=== PATIENT | female | born 1985 | race Asian ===

== ENCOUNTER 2018-10-02 16:45 | Inpatient (IN) | payer BC, OTHER ==
[~2018-10-02] VITALS: Ht 162.6 cm; Wt 113.6 kg
[2018-10-02 17:07] VITALS: BP 141/87
[2018-10-02 17:23] LABS: MICROSCOPIC INDICATED
[2018-10-02 17:26] LABS: BASOPHILS # (AUTO) 0.13 x10^3/uL (0-0.1); BASOPHILS % (AUTO) 1 % (0-1); EOSINOPHILS # (AUTO) 0.13 x10^3/uL (0-0.4); EOSINOPHILS % (AUTO) 1 % (1-7); LYMPHOCYTES # (AUTO) 2.69 x10^3/uL (1-3.4); LYMPHOCYTES % (AUTO) 18 % (22-44); MD NO; MEAN CORPUSCULAR HEMOGLOBIN 28.6 pg (27.0-34.8); MEAN CORPUSCULAR HGB CONC 33.2 g/dL (32.4-35.8); MEAN CORPUSCULAR VOLUME 86.2 fL (80-100); MEAN PLATELET VOLUME 9.5 fL (7.4-10.4); MONOCYTES # (AUTO) 0.95 x10^3/uL (0.2-0.8); MONOCYTES % (AUTO) 6 % (2-9); NEUTROPHILS # (AUTO) 10.97 x10^3/uL (1.8-6.8); NEUTROPHILS % (AUTO) 74 % (42-75); PLATELET COUNT 251 x10^3/uL (130-400); RED BLOOD COUNT 4.34 x10^6/uL (3.82-5.3); RED CELL DISTRIBUTION WIDTH 13.5 % (9.6-15.2)
[2018-10-02 17:26] LABS: CREATININE,URINE RANDOM 82.2 mg/dL
[2018-10-02 17:39] LABS: ALBUMIN 2.8 g/dL (3.4-5.0); ANION GAP 8 mmol/L (5-15); CALCIUM 8.5 mg/dL (8.5-10.1); CHLORIDE 110 mmol/L (98-107)
[2018-10-02 17:43] LABS: ALANINE AMINOTRANSFERASE 13 U/L (12-78); ALKALINE PHOSPHATASE 181 U/L (45-117); BILIRUBIN,TOTAL 0.1 mg/dL (0.2-1.0); CREATININE 0.58 mg/dL (0.55-1.02); TOTAL PROTEIN 7.8 g/dL (6.4-8.2)
[2018-10-02 17:45] LABS: BILIRUBIN, DIRECT < 0.1 mg/dL (0.1-0.2)
[2018-10-02] MEDS ORDERED: D5%-LACTATED RINGERS 1,000 ML IV SCH (18:01)
[2018-10-02] MEDS ORDERED: OXYTOCIN 30U/ 0.9% NaCL 500ML 500 ML IV PRN (18:01)
[2018-10-02] MEDS ORDERED: OXYTOCIN 30U/ 0.9% NaCL 500ML 500 ML IV ONE (18:01)
[2018-10-02] MEDS ORDERED: NEWBORN KIT ONE (18:12)
[2018-10-02] MEDS ORDERED: OXYTOCIN 30U/ 0.9% NaCL 500ML 500 ML ONE (18:12)
[2018-10-02] MEDS ORDERED: MISOPROSTOL 200 MCG TABLET ONE (18:12)
[2018-10-02] MEDS ORDERED: LIDOCAINE 1%, 20ML ONE (18:12)
[2018-10-02] MEDS ORDERED: ONDANSETRON 2MG/ML, 2ML ONE (18:13)
[2018-10-02] MEDS: LACTATED RINGERS 1,000 ML IV SCH ×2 (18:28→22:21)
[2018-10-02] MEDS ORDERED: SODIUM CITRATE/CITRIC ACID 30 ML UDC PO PRN (18:30)
[2018-10-02] MEDS ORDERED: FENTANYL PF 100 MCG/2ML IV PRN (18:30)
[2018-10-02] MEDS ORDERED: ONDANSETRON 2MG/ML, 2ML IVPush PRN (18:30)
[2018-10-02] MEDS ORDERED: METOCLOPRAMIDE 5 MG/ML, 2ML IVPush PRN (18:30)
[2018-10-02] MEDS ORDERED: FENTANYL/BUPIV./NS/PF 250 ML EPIDCONT SCH (20:15)
[2018-10-02] MEDS ORDERED: LACTATED RINGERS 1,000 ML IV SCH (20:15)
[2018-10-02] MEDS ORDERED: LACTATED RINGERS 1,000 ML IVBOLUS PRN (20:30)
[2018-10-02] MEDS ORDERED: NALOXONE 0.4 MG/ML, 1ML IVPush PRN (20:30)
[2018-10-02] MEDS ORDERED: EPHEDRINE 50 MG/ML, 1ML IVPush PRN (20:30)
[2018-10-03] MEDS ORDERED: FENTANYL PF 100 MCG/2ML ONE ×2 (01:08→02:01)
[2018-10-03] MEDS: FENTANYL PF 100 MCG/2ML IVPush PRN ×2 (01:14→02:19)
[2018-10-03] MEDS ORDERED: FENTANYL/BUPIV./NS/PF 250 ML EPIDCONT ONE (02:56)
[2018-10-03] MEDS ORDERED: FENTANYL/BUPIV./NS/PF 250 ML EPIDCONT SCH (03:09)
[2018-10-03] MEDS: LACTATED RINGERS 1,000 ML IV SCH ×3 (03:09→19:09)
[2018-10-03] MEDS ORDERED: BUPIVACAINE 0.25% ONE (03:12)
[2018-10-03] MEDS ORDERED: EPHEDRINE 50 MG/ML, 1ML IVPush PRN (03:30)
[2018-10-03] MEDS ORDERED: NALOXONE 0.4 MG/ML, 1ML IVPush PRN (03:30)
[2018-10-03] MEDS ORDERED: LACTATED RINGERS 1,000 ML IVBOLUS PRN (03:30)
[2018-10-03] MEDS ORDERED: ACETAMINOPHEN 325 MG TABLET ONE (05:33)
[2018-10-03] MEDS ORDERED: IBUPROFEN 600 MG TABLET ONE (06:43)
[2018-10-03] MEDS ORDERED: OXYcodone/APAP 5/325MG TABLET ONE (06:43)
[2018-10-03] MEDS: IBUPROFEN 600 MG TABLET PO PRN ×3 (06:55→23:56)
[2018-10-03] MEDS ORDERED: OXYTOCIN 30U/ 0.9% NaCL 500ML 500 ML ONE (06:58)
[2018-10-03] MEDS ORDERED: MEASLES,MUMPS&RUBELLA VACC/PF 0.5 ML SQ PRN (07:00)
[2018-10-03] MEDS ORDERED: DIPH,PERTUSS(ACELL),TET VAC/PF NC IM-VACC PRN (07:00)
[2018-10-03] MEDS ORDERED: RHOGAM FROM BLOOD BANK 1 NOTE EA IM/IV ONE (07:00)
[2018-10-03] MEDS ORDERED: CARBOPROST TROMETHAMINE 250 MCG/ML, 1ML IM PRN (07:00)
[2018-10-03] MEDS ORDERED: MISOPROSTOL 200 MCG TABLET PR PRN (07:00)
[2018-10-03] MEDS ORDERED: ACETAMINOPHEN 325 MG TABLET PO PRN (07:00)
[2018-10-03] MEDS ORDERED: OXYcodone/APAP 5/325MG TABLET PO PRN ×2 (07:00)
[2018-10-03] MEDS: OXYTOCIN 30U/ 0.9% NaCL 500ML 500 ML IV SCH ×2 (07:01→16:37)
[2018-10-03 08:35] VITALS: BP 138/82
[2018-10-03] MEDS: PRENATAL VIT/IRON/FA 1 EACH TABLET PO SCH (09:00)
[2018-10-03 12:01] VITALS: BP_SYST 114; BP_SYST 126; BP_DIAS 74; BP_DIAS 77
[2018-10-03] MEDS ORDERED: LACTATED RINGERS 1,000 ML INTUTE SCH (13:00)
[2018-10-03] MEDS ORDERED: LACTATED RINGERS 1,000 ML INTUTE PRN (13:00)
[2018-10-03 15:32] LABS: BASOPHILS # (AUTO) 0.05 x10^3/uL (0-0.1); BASOPHILS % (AUTO) 0 % (0-1); EOSINOPHILS # (AUTO) 0.02 x10^3/uL (0-0.4); EOSINOPHILS % (AUTO) 0 % (1-7); LYMPHOCYTES # (AUTO) 2.16 x10^3/uL (1-3.4); LYMPHOCYTES % (AUTO) 11 % (22-44); MD SCAN; MEAN CORPUSCULAR HEMOGLOBIN 28.1 pg (27.0-34.8); MEAN CORPUSCULAR HGB CONC 32.4 g/dL (32.4-35.8); MEAN CORPUSCULAR VOLUME 86.7 fL (80-100); MEAN PLATELET VOLUME 9.6 fL (7.4-10.4); MONOCYTES # (AUTO) 1.16 x10^3/uL (0.2-0.8); MONOCYTES % (AUTO) 6 % (2-9); NEUTROPHILS # (AUTO) 16.66 x10^3/uL (1.8-6.8); NEUTROPHILS % (AUTO) 83 % (42-75); PLATELET COUNT 222 x10^3/uL (130-400); RED BLOOD COUNT 3.93 x10^6/uL (3.82-5.3); RED CELL DISTRIBUTION WIDTH 13.6 % (9.6-15.2)
[2018-10-03 16:05] VITALS: BP 131/77
[2018-10-03 19:20] VITALS: BP 116/74
[2018-10-03 23:50] VITALS: BP 129/87
[2018-10-03] MEDS: DOCUSATE 100 MG CAPSULE PO PRN (23:56)
[2018-10-04] MEDS: OXYTOCIN 30U/ 0.9% NaCL 500ML 500 ML IV SCH (02:37)
[2018-10-04] MEDS: LACTATED RINGERS 1,000 ML IV SCH (03:09)
[2018-10-04 04:15] VITALS: BP 135/84
[2018-10-04] MEDS: DOCUSATE 100 MG CAPSULE PO PRN (07:36)
[2018-10-04] MEDS: IBUPROFEN 600 MG TABLET PO PRN (07:36)
[2018-10-04] MEDS ORDERED: IBUP-1222 PO (07:53)
[2018-10-04] MEDS: PRENATAL VIT/IRON/FA 1 EACH TABLET PO SCH (08:42)
== END 2018-10-04 09:02 | disposition home or self-care (01) | DRG 807 ==
LOC: LDOP 16:45 → LDIP 18:04 → 2NW 10-03 08:30
PROVIDERS: ADMIT Obstetrics & Gynecology; ATTEND Obstetrics & Gynecology
PROC: 10E0XZZ Delivery of Products of Conception, External Approach (ICD-10-PCS; principal; 2018-10-03)
PROC: 3E0R3BZ Introduction of Anesthetic Agent into Spinal Canal, Percutaneous Approach (ICD-10-PCS; 2018-10-03)
PROC: 00HU33Z Insertion of Infusion Device into Spinal Canal, Percutaneous Approach (ICD-10-PCS; 2018-10-03)
DX: O11.4 Pre-existing hypertension with pre-eclampsia, complicating childbirth (principal); Z37.0 Single live birth; O99.214 Obesity complicating childbirth; O99.334 Smoking (tobacco) complicating childbirth; E66.9 Obesity, unspecified; F17.210 Nicotine dependence, cigarettes, uncomplicated; Z79.82 Long term (current) use of aspirin; Z82.3 Family history of stroke; Z82.49 Family history of ischemic heart disease and other diseases of the circulatory system; Z3A.38 38 weeks gestation of pregnancy; Z83.3 Family history of diabetes mellitus; Z23 Encounter for immunization
CPT/HCPCS: 36415; J7121; 80053; 81001; 82248; 82570; 84156; 84550; 85025; 86850; 86900; 90656; G0378; J3010; J3490; J2590; J7120